=== PATIENT | male | born 1990 | race African-American/Black ===

== ENCOUNTER 2017-02-04 21:14 | Emergency (ER) | payer BC ==
[~2017-02-04] VITALS: Ht 175.3 cm; Wt 81.6 kg
[2017-02-04 21:23] VITALS: BP 111/70
[2017-02-04 22:05] LABS: BASOPHILS % (AUTO) 0.6 % (0.0-2.0); EOSINOPHILS # (AUTO) 0.2 /CMM (0.0-0.7); EOSINOPHILS % (AUTO) 5.2 % (0.0-6.0); HEMATOCRIT 44 % (39-51); HEMOGLOBIN 14.3 g/dL (13.5-17.5); LYMPHOCYTES % (AUTO) 25.6 % (20.0-44.0); MEAN CORPUSCULAR HEMOGLOBIN 30 PG (26.0-33.0); MEAN CORPUSCULAR HGB CONC 32 g/dl (31.0-36.0); MEAN CORPUSCULAR VOLUME 93 fL (80-96); MONOCYTES # (AUTO) 0.3 /CMM (0.1-1.30); MONOCYTES % (AUTO) 7.3 % (2.0-12.0); NEUTROPHILS # (AUTO) 2.3 /CMM (1.8-8.9); NEUTROPHILS % (AUTO) 61.3 % (43.0-81.0); PLATELET COUNT (AUTO) 245 /CMM (150-450); RDW COEFFICIENT OF VARIATION 13.5 (11.5-15.0); RED BLOOD CELL COUNT(AUTO) 4.77 MIL/uL (4.5-6.0); WHITE BLOOD COUNT (AUTO) 3.8 K/uL (4.3-11.0)
[2017-02-04 22:11] LABS: CALCIUM, SERUM 9.1 mg/dL (8.5-10.1); CREATININE 0.9 mg/dL (0.6-1.3); POTASSIUM 3.9 mmol/L (3.5-5.1)
[2017-02-04 22:16] LABS: ALBUMIN 4.3 g/dL (3.4-5.0); BILIRUBIN,DIRECT 0.1 mg/dL (0.0-0.2); BILIRUBIN,TOTAL 0.5 mg/dL (0.2-1.0); TOTAL PROTEIN, SERUM 7.7 g/dL (6.4-8.2)
--- NOTE | 2017-02-04 22:35 | NUR ---
PT RESTING IN BED, PLAYING ON PHONE, BREATHIG NUNLABORED, GABRIELLE NTOED.
== END 2017-02-04 23:27 | disposition home or self-care (01) ==
LOC: ER 21:16
DX: R06.00 Dyspnea, unspecified (principal); R10.13 Epigastric pain; R20.2 Paresthesia of skin; M62.830 Muscle spasm of back; D72.819 Decreased white blood cell count, unspecified
CPT/HCPCS: 36415; 71010-TC; 80048-TC; 80076-TC; 83690-TC; 85025-TC; A4606; J1885; Z7610

== ENCOUNTER 2019-08-14 12:56 | Emergency (ER) | payer BC, OTHER ==
[~2019-08-14] VITALS: Ht 185.4 cm; Wt 77.1 kg
--- NOTE | 2019-08-14 13:25 | NUR ---
PT REC'D TO ER C/O CP AND RT CALF PAIN 3/10 EKG DONE AWAITING EVALUATION BY ER PROVIDER.
[2019-08-14] MEDS ORDERED: KETOROLAC TROMETHAMINE INJ 60 MG/2 ML VIAL IM ONE (13:30)
[2019-08-14] MEDS ORDERED: KETOROLAC TROMETHAMINE 15 MG/ML VIAL ONE (13:33)
--- NOTE | 2019-08-14 13:37 | NUR ---
PT GIVEN TORADOL 15 MG IM RT DELTOID
--- NOTE | 2019-08-14 13:49 | NUR ---
PT SSTATED FEELING BETTER EKG JERAD
--- NOTE | 2019-08-14 13:57 | NUR ---
cardiology on-call paged
[2019-08-14] MEDS ORDERED: ASPIRIN 325 MG TABLET PO ONE (14:00)
[2019-08-14] MEDS ORDERED: ASPIRIN 325 MG TABLET ONE (14:03)
--- NOTE | 2019-08-14 14:14 | NUR ---
PT [id number] ASA 325 MG PO AND IV STARTED 20G IV LABS SENT TO LAB . CHEST XRAY DONE
[2019-08-14 14:24] LABS: EOSINOPHILS % (AUTO) 20.7 % (0.0-6.0); HEMATOCRIT 44 % (39-51); HEMOGLOBIN 14.3 g/dL (13.5-17.5); LYMPHOCYTES # (AUTO) 0.7 /CMM (0.8-4.8); LYMPHOCYTES % (AUTO) 21.2 % (20.0-44.0); MEAN CORPUSCULAR HGB CONC 33 g/dl (31.0-36.0); MEAN CORPUSCULAR VOLUME 95 fL (80-96); MONOCYTES # (AUTO) 0.3 /CMM (0.1-1.30); NEUTROPHILS # (AUTO) 1.7 /CMM (1.8-8.9); NEUTROPHILS % (AUTO) 49.1 % (43.0-81.0); PLATELET COUNT (AUTO) 237 /CMM (150-450); WHITE BLOOD COUNT (AUTO) 3.5 K/uL (4.3-11.0)
[2019-08-14 14:26] LABS: CALCIUM, SERUM 8.6 mg/dL (8.5-10.1); CARBON DIOXIDE 31 mmol/L (21-32); CHLORIDE 105 mmol/L (98-107); CREATININE 0.9 mg/dL (0.6-1.3); GLUCOSE 96 mg/dL (74-106); POTASSIUM 4.5 mmol/L (3.5-5.1); SODIUM SERUM 144 mmol/L (136-145); UREA NITROGEN, BLOOD 7 mg/dL (7-18)
--- NOTE | 2019-08-14 17:28 | NUR ---
pt amb to br voided back to bed . pt blood drawn tropion level
--- NOTE | 2019-08-14 19:12 | NUR ---
PT. VERBALIZED UNDERSTANDING OF AFTERCARE INSTRUCTIONS.IV removed. Catheter intact and site benign. Pressure and 4x4 applied to site. No bleeding noted.Patient discharged to home in stable condition. Written and verbal after care instructions given. Patient verbalizes understanding of instruction.
[2019-08-14 19:13] VITALS: BP 137/78
--- NOTE | 2019-08-14 19:31 | NUR ---
Patient discharged to home in stable condition. Written and verbal after care instructions given. Patient verbalizes understanding of instruction.
== END 2019-08-14 19:32 | disposition home or self-care (01) ==
LOC: ER 12:56
DX: R07.89 Other chest pain (principal); M79.662 Pain in left lower leg; M79.661 Pain in right lower leg
CPT/HCPCS: 36415; 71045; 80048; 84484 ×2; 85025; 85378; 93005 ×2; 93970; 96372; 99285; J1885

== ENCOUNTER 2019-10-02 21:12 | Emergency (ER) | payer OTHER ==
[~2019-10-02] VITALS: Ht 185.4 cm; Wt 77.1 kg
--- NOTE | 2019-10-02 21:15 | NUR ---
TO ER BED 3 AMBULATORY C/O MIDSTERNAL CP/EPIGASTRIC PAIN X1 WEEK WORSE SINCE LAST NIGHT. PT AAOX4 NO ACUTE DISTRESS NOTED, RESP EVEN AND UNLABORED. PLACE PT ON CARDIAC MONTIORING, COTNINUOUS POX. PENDING ER MD PADRON.
--- NOTE | 2019-10-02 21:54 | NUR ---
XRAY AT BEDSIDE
--- NOTE | 2019-10-02 21:54 | NUR ---
LABS COLLECTED AND SENT TO LAB
[2019-10-02] MEDS ORDERED: MAG HYDROX/AL HYDROX/SIMETH 30 ML UDC PO ONE (22:00)
[2019-10-02] MEDS ORDERED: LIDOCAINE VISCOUS 2% UD 15 ML UDC MM ONE (22:00)
[2019-10-02 22:01] LABS: BASOPHILS # (AUTO) 0.1 /CMM (0.0-0.2); BASOPHILS % (AUTO) 1.8 % (0.0-2.0); EOSINOPHILS % (AUTO) 6.2 % (0.0-6.0); HEMATOCRIT 42 % (39-51); HEMOGLOBIN 13.9 g/dL (13.5-17.5); LYMPHOCYTES % (AUTO) 31.3 % (20.0-44.0); MEAN CORPUSCULAR HGB CONC 34 g/dl (31.0-36.0); MEAN CORPUSCULAR VOLUME 94 fL (80-96); MONOCYTES # (AUTO) 0.3 /CMM (0.1-1.30); MONOCYTES % (AUTO) 8.1 % (2.0-12.0); NEUTROPHILS # (AUTO) 1.7 /CMM (1.8-8.9); NEUTROPHILS % (AUTO) 52.6 % (43.0-81.0); PLATELET COUNT (AUTO) 246 /CMM (150-450); RED BLOOD CELL COUNT(AUTO) 4.43 MIL/uL (4.5-6.0); WHITE BLOOD COUNT (AUTO) 3.3 K/uL (4.3-11.0)
[2019-10-02 22:09] LABS: CALCIUM, SERUM 8.9 mg/dL (8.5-10.1); POTASSIUM 3.9 mmol/L (3.5-5.1)
[2019-10-02] MEDS ORDERED: MAG HYDROX/AL HYDROX/SIMETH 30 ML UDC ONE (22:10)
[2019-10-02] MEDS ORDERED: LIDOCAINE VISCOUS 2% UD 15 ML UDC ONE (22:10)
--- NOTE | 2019-10-02 22:12 | NUR ---
Patient is resting comfortably in bed. Easily aroused. VSS.
[2019-10-02 22:14] LABS: ALBUMIN 4.2 g/dL (3.4-5.0); BILIRUBIN,DIRECT 0.1 mg/dL (0.0-0.2); BILIRUBIN,TOTAL 0.4 mg/dL (0.2-1.0); TOTAL PROTEIN, SERUM 7.6 g/dL (6.4-8.2)
--- NOTE | 2019-10-03 02:05 | NUR ---
Patient discharged to home in stable condition. Written and verbal after care instructions given. Patient verbalizes understanding of instruction and RX. Pt ambulated with steady gait. VSS.
--- NOTE | 2019-10-03 02:05 | NUR ---
IV removed. Catheter intact and site benign. Pressure and 4x4 applied to site. No bleeding noted.
[2019-10-03 02:07] VITALS: BP 122/78
== END 2019-10-03 02:07 | disposition home or self-care (01) ==
LOC: ER 21:17
DX: K29.60 Other gastritis without bleeding (principal); R07.89 Other chest pain; R00.2 Palpitations
CPT/HCPCS: 36415; 71045-TC; 80048-TC; 80076-TC; 84484-TC; 85025-TC

== ENCOUNTER 2020-01-24 16:45 | Emergency (ER) | payer OTHER ==
[~2020-01-24] VITALS: Ht 185.4 cm; Wt 78.5 kg
[2020-01-24] MEDS ORDERED: IV NS 0.9% 1,000 ML BAG IV ONE (17:00)
[2020-01-24] MEDS ORDERED: MORPHINE SULFATE INJ 2 MG/ML DISP.SYRIN IV ONE (17:00)
[2020-01-24] MEDS ORDERED: ONDANSETRON HCL/PF 4 MG/2 ML VIAL IVP ONE (17:00)
[2020-01-24] MEDS ORDERED: ONDANSETRON HCL/PF 4 MG/2 ML VIAL ONE (17:03)
[2020-01-24] MEDS ORDERED: MORPHINE SULFATE INJ 4 MG/ML DISP.SYRIN ONE (17:03)
[2020-01-24 17:18] LABS: BASOPHILS % (AUTO) 0.3 % (0.0-2.0); EOSINOPHILS % (AUTO) 8.3 % (0.0-6.0); HEMATOCRIT 44 % (39-51); HEMOGLOBIN 14.5 g/dL (13.5-17.5); LYMPHOCYTES # (AUTO) 0.5 /CMM (0.8-4.8); MEAN CORPUSCULAR HGB CONC 33 g/dl (31.0-36.0); MEAN CORPUSCULAR VOLUME 94 fL (80-96); MONOCYTES # (AUTO) 0.3 /CMM (0.1-1.30); MONOCYTES % (AUTO) 8.7 % (2.0-12.0); NEUTROPHILS # (AUTO) 2.3 /CMM (1.8-8.9); NEUTROPHILS % (AUTO) 68.7 % (43.0-81.0); PLATELET COUNT (AUTO) 237 /CMM (150-450); WHITE BLOOD COUNT (AUTO) 3.4 K/uL (4.3-11.0)
--- NOTE | 2020-01-24 17:19 | NUR ---
BIBS FROM HOME TO ER BED 7. AAOX4. NOT IN RESP DISTRESS. AMBULATORY. CAME IN FOR GEN ABDOMINAL PAIN X 2 WEEKS. RATES PAIN 10/10 SHARP, STABBING AND CONSTANT IN NATURE. PT DENIES NAUSEA AT THE TIME OF ASSESSMENT. PT DID REPORT THAT HE HAS BEEN HAVING ASSOCIATED WATTERY DIARRHEA. WAS A THE BEDSIDE FOR EVAL. ORDERS RECEIVED, NOTED AND CARRIED OUT. IV LINE ESTABLISHED ON RFA 18G. BLOOD DRAWN AND GIVEN TO ROVING OR YARN COLOR CHECKER AT BEDSIDE. MEDICATION ORDERED. PT ON MONITOR.
[2020-01-24 17:28] LABS: CALCIUM, SERUM 9.2 mg/dL (8.5-10.1); POTASSIUM 3.8 mmol/L (3.5-5.1)
[2020-01-24] MEDS ORDERED: IOHEXOL-300 100 ML VIAL IV ONE (17:33)
[2020-01-24] MEDS ORDERED: IV NS 0.9% 250 ML IV ONE (17:33)
[2020-01-24 17:34] LABS: ALBUMIN 4.2 g/dL (3.4-5.0); BILIRUBIN,DIRECT 0.1 mg/dL (0.0-0.2); BILIRUBIN,TOTAL 0.5 mg/dL (0.2-1.0); TOTAL PROTEIN, SERUM 7.9 g/dL (6.4-8.2)
--- NOTE | 2020-01-24 17:37 | NUR ---
PT TO CT ON WHEELCHAIR
[2020-01-24 18:23] LABS: APPEARANCE,URINE Clear (CLEAR); BILIRUBIN,URINE Negative (NEGATIVE); BLOOD, URINE Negative Ery/uL (NEGATIVE); COLOR,URINE Yellow (YELLOW); KETONES,URINE Negative (NEGATIVE); LEUKOCYTE ESTERASE ,URINE Negative (NEGATIVE); NITRITE, URINE Negative (NEGATIVE); PH,URINE 5.5 (5.0-8.0); PROTEIN,URINE Negative (NEGATIVE); UGLUCOSE Negative (NEGATIVE); UROBILINOGEN,URINE 0.2 EU/dL (0.2)
--- NOTE | 2020-01-24 18:48 | NUR ---
COVIDE SWAB DONE AND SENT TO LAB
[2020-01-24 18:55] VITALS: BP 121/71
== END 2020-01-24 18:55 | disposition home or self-care (01) ==
LOC: ER 16:48
DX: K52.9 Noninfective gastroenteritis and colitis, unspecified (principal); Z20.828 Contact with and (suspected) exposure to other viral communicable diseases; K92.1 Melena
CPT/HCPCS: 36415; 74177; 80048; 80076; 81001; 83690; 85025; 85730; 96361; 96374; 96375; 99285; C9803; J2270; J2405; J7030; J7050; Q9967; U0003; 81000-TC

== ENCOUNTER 2020-01-26 17:32 | Emergency (ER) | payer OTHER ==
[~2020-01-26] VITALS: Ht 185.4 cm; Wt 78.5 kg
--- NOTE | 2020-01-26 17:46 | NUR ---
diffuse abdominal pain since last night. seen for colitis 2 days ago. Patient a/ox4, breathing even and unlabored, no sob ntoed, ambulatory with steady gait. Denies nausea and vomiting.
--- NOTE | 2020-01-26 18:03 | NUR ---
URINE SENT TO LAB.
[2020-01-26 18:06] LABS: BASOPHILS % (AUTO) 0.4 % (0.0-2.0); EOSINOPHILS % (AUTO) 8.5 % (0.0-6.0); HEMATOCRIT 45 % (39-51); HEMOGLOBIN 14.7 g/dL (13.5-17.5); LYMPHOCYTES # (AUTO) 0.5 /CMM (0.8-4.8); MEAN CORPUSCULAR HGB CONC 33 g/dl (31.0-36.0); MEAN CORPUSCULAR VOLUME 93 fL (80-96); MONOCYTES # (AUTO) 0.5 /CMM (0.1-1.30); MONOCYTES % (AUTO) 9.1 % (2.0-12.0); NEUTROPHILS # (AUTO) 4.5 /CMM (1.8-8.9); PLATELET COUNT (AUTO) 263 /CMM (150-450); RED BLOOD CELL COUNT(AUTO) 4.84 MIL/uL (4.5-6.0)
[2020-01-26 18:08] LABS: APPEARANCE,URINE Clear (CLEAR); BILIRUBIN,URINE Negative (NEGATIVE); BLOOD, URINE Negative Ery/uL (NEGATIVE); COLOR,URINE Yellow (YELLOW); KETONES,URINE Trace (NEGATIVE); LEUKOCYTE ESTERASE ,URINE Negative (NEGATIVE); NITRITE, URINE Negative (NEGATIVE); PROTEIN,URINE Trace mg/dl (NEGATIVE); UGLUCOSE Negative (NEGATIVE); UROBILINOGEN,URINE 0.2 EU/dL (0.2)
[2020-01-26 18:16] LABS: CALCIUM, SERUM 9.2 mg/dL (8.5-10.1)
[2020-01-26 18:22] LABS: ALBUMIN 4.4 g/dL (3.4-5.0); BILIRUBIN,DIRECT 0.1 mg/dL (0.0-0.2); BILIRUBIN,TOTAL 0.5 mg/dL (0.2-1.0); TOTAL PROTEIN, SERUM 7.7 g/dL (6.4-8.2)
[2020-01-26 18:24] LABS: BACTERIA,URINE Rare /HPF (None Seen); MUCUS,URINE Moderate /LPF (None Seen); RBC,URINE 0-2 /HPF (0-2); SQUAMOUS EPITHELIAL CELL,UR Few /HPF (None Seen); URINE AMORPHOUS URATE Few /HPF (None Seen)
[2020-01-26] MEDS ORDERED: ONDANSETRON HCL/PF 4 MG/2 ML VIAL ONE (18:35)
[2020-01-26] MEDS ORDERED: KETOROLAC TROMETHAMINE 15 MG/ML VIAL ONE (18:35)
[2020-01-26] MEDS ORDERED: PANTOPRAZOLE 40 MG VIAL ONE (18:35)
[2020-01-26] MEDS: PANTOPRAZOLE 40 MG VIAL IV ONE (18:45)
[2020-01-26] MEDS: KETOROLAC TROMETHAMINE INJ 30 MG/ML VIAL IV ONE (18:46)
[2020-01-26] MEDS: ONDANSETRON HCL/PF - ER 4 MG/2 ML VIAL IV ONE (18:46)
--- NOTE | 2020-01-26 18:46 | NUR ---
IV LINE ESTABLISHED. US TECH AT BEDSIDE.
--- NOTE | 2020-01-26 19:18 | NUR ---
TOOK OVER PT CARE. PT STATED HE FEELS BETTER. VSS. NO ACUTE DISTRESS NOTED.
--- NOTE | 2020-01-26 19:48 | NUR ---
Patient discharged to home in stable condition. Written and verbal after care instructions given. Patient verbalizes understanding of instruction and RX. Pt ambulated with steady gait. vss. Denies pain.
--- NOTE | 2020-01-26 19:48 | NUR ---
IV removed. Catheter intact and site benign. Pressure and 4x4 applied to site. No bleeding noted.
[2020-01-26 19:49] VITALS: BP 112/73
== END 2020-01-26 19:50 | disposition home or self-care (01) ==
LOC: ER 17:32
DX: R10.13 Epigastric pain (principal); R19.7 Diarrhea, unspecified
CPT/HCPCS: 36415; 76705; 80048; 80076; 81001; 83690; 85025; 96374; 96375; 99284; C9113; J1885; J2405 ×2; 81000-TC

== ENCOUNTER 2020-01-29 00:13 | Emergency (ER) | payer OTHER ==
[~2020-01-29] VITALS: Ht 185.4 cm; Wt 78.5 kg
--- NOTE | 2020-01-29 00:30 | NUR ---
PT BIBSELF C/O MIDEPIGASTRIC ABDOMINAL PAIN X3 DAYS. PT HAS HAD MULTIPLE VISITS TO [facility] ER, DX WITH COLITIS 01/24/20. PT STATES HE ATTEMPTED TO MAKE APPT WITH GASTROLOGIST, APPT IN 4 DAYS BUT PT STILL C/O NAUSEA AND ABDOMINAL PAIN. PT AAOX4. APPEARS UNCOMFORTABLE. VITAL SIGNS STABLE. RESPIRATIONS EVEN AND UNLABORED. AMBULATORY WITH STEADY GAIT. NO ACUTE DISTRESS NOTED AT THIS TIME. PLACED IN GOWN AND ON MONITOR, WILL CONTINUE TO MONITOR
--- NOTE | 2020-01-29 00:44 | NUR ---
MD AT BEDSIDE FOR EVALUATION
[2020-01-29] MEDS ORDERED: LIDOCAINE VISCOUS 2% UD 15 ML UDC ONE (00:57)
[2020-01-29] MEDS ORDERED: KETOROLAC TROMETHAMINE INJ 60 MG/2 ML VIAL IM ONE ×2 (00:57→01:00)
[2020-01-29] MEDS ORDERED: MAG HYDROX/AL HYDROX/SIMETH 30 ML UDC ONE (00:58)
[2020-01-29] MEDS ORDERED: ONDANSETRON 4 MG TAB.RAPDIS ONE (00:58)
[2020-01-29] MEDS ORDERED: ONDANSETRON 4 MG TAB.RAPDIS SL ONE (01:00)
[2020-01-29] MEDS ORDERED: MAG HYDROX/AL HYDROX/SIMETH 30 ML UDC PO ONE (01:00)
[2020-01-29] MEDS ORDERED: LIDOCAINE VISCOUS 2% UD 15 ML UDC MM ONE (01:00)
[2020-01-29 01:59] VITALS: BP 149/78
--- NOTE | 2020-01-29 01:59 | NUR ---
Patient discharged to home in stable condition. Written and verbal after care instructions given. Patient verbalizes understanding of instruction.Pt ambulatory with a steady gait
== END 2020-01-29 02:07 | disposition home or self-care (01) ==
LOC: ER 00:13
DX: R10.33 Periumbilical pain (principal); R11.0 Nausea
CPT/HCPCS: 96372; 99284; J1885; Q0162

== ENCOUNTER 2020-06-06 17:53 | Emergency (ER) | payer OTHER ==
[~2020-06-06] VITALS: Ht 182.9 cm; Wt 78.5 kg
[2020-06-06 18:02] VITALS: BP 140/72
[2020-06-06] MEDS ORDERED: HYDR-3972 PO (18:16)
== END 2020-06-06 18:35 | disposition home or self-care (01) ==
LOC: ER 17:55
DX: G97.1 Other reaction to spinal and lumbar puncture (principal); R51.9 Headache, unspecified; Z79.899 Other long term (current) drug therapy

== ENCOUNTER 2020-06-19 01:14 | Emergency (ER) | payer OTHER ==
[~2020-06-19] VITALS: Ht 185.4 cm; Wt 78.5 kg
[~2020-06-19 01:14] MED LIST: HYDR-3972 PO
--- NOTE | 2020-06-19 01:20 | NUR ---
BIBSELF C/O R SHOULDER PAIN [id number], PAIN RADIATING TO CHEST DEVELOPMENT CHEMIST, PT AAOX4, DENIES SOB, NOT IN ACUTE DISTRESS, PLACED ON MONITOR, VSS, PENDING ER PROVIDER NEREIDA
[2020-06-19 01:49] LABS: BASOPHILS # (AUTO) 0.1 /CMM (0.0-0.2); BASOPHILS % (AUTO) 1.7 % (0.0-2.0); EOSINOPHILS % (AUTO) 7.8 % (0.0-6.0); HEMATOCRIT 40 % (39-51); HEMOGLOBIN 13.3 g/dL (13.5-17.5); LYMPHOCYTES # (AUTO) 1.1 /CMM (0.8-4.8); LYMPHOCYTES % (AUTO) 30.3 % (20.0-44.0); MEAN CORPUSCULAR HGB CONC 33 g/dl (31.0-36.0); MEAN CORPUSCULAR VOLUME 92 fL (80-96); MONOCYTES # (AUTO) 0.3 /CMM (0.1-1.30); MONOCYTES % (AUTO) 8.4 % (2.0-12.0); NEUTROPHILS # (AUTO) 1.9 /CMM (1.8-8.9); NEUTROPHILS % (AUTO) 51.8 % (43.0-81.0); PLATELET COUNT (AUTO) 271 /CMM (150-450); RED BLOOD CELL COUNT(AUTO) 4.38 MIL/uL (4.5-6.0); WHITE BLOOD COUNT (AUTO) 3.7 K/uL (4.3-11.0)
[2020-06-19 02:22] LABS: CALCIUM, SERUM 9.1 mg/dL (8.5-10.1); CARBON DIOXIDE 35 mmol/L (21-32); CHLORIDE 104 mmol/L (98-107); CREATININE 0.9 mg/dL (0.6-1.3); GLUCOSE 91 mg/dL (74-106); POTASSIUM 4.9 mmol/L (3.5-5.1); SODIUM SERUM 142 mmol/L (136-145); UREA NITROGEN, BLOOD 7 mg/dL (7-18)
--- NOTE | 2020-06-19 03:09 | NUR ---
Patient discharged to home in stable condition. Written and verbal after care instructions given. Patient verbalizes understanding of instruction.
[2020-06-19 03:13] VITALS: BP 125/75
== END 2020-06-19 03:13 | disposition home or self-care (01) ==
LOC: ER 01:15
DX: R07.89 Other chest pain (principal); Z79.899 Other long term (current) drug therapy
CPT/HCPCS: 36415; 71045-TC; 80048-TC; 84484-TC; 85025-TC

== ENCOUNTER 2020-07-31 18:04 | Emergency (ER) | payer OTHER ==
[~2020-07-31] VITALS: Ht 185.4 cm; Wt 76.2 kg
--- NOTE | 2020-07-31 18:35 | NUR ---
THE PATIENT BIBSELF FOR C/O FREQUENT SCANTY URINATION,DARK URINE X 4 DAYS. ALERT AND ORIENTED X4. DENIES SOB. IN ROOM AIR AIR AND DENIES SOB. RESPIRATION REGULAR AND UNLABORED. DENIES PAIN. THE PATIENT IS PROVIDED WITH A BLANKET. WILL CONTINUE TO MONITOR.
--- NOTE | 2020-07-31 18:45 | NUR ---
URINE COLLECTED AND SENT IT TO THE LAB.
[2020-07-31] MEDS ORDERED: IV NS 0.9% 1,000 ML BAG IV ONE (19:00)
[2020-07-31 19:08] LABS: BILIRUBIN,URINE NEGATIVE (NEGATIVE); COLOR,URINE YELLOW (YELLOW); LEUKOCYTE ESTERASE ,URINE NEGATIVE (NEGATIVE); NITRITE, URINE NEGATIVE (NEGATIVE); PH,URINE 6.5 (5.0-8.0); PROTEIN,URINE NEGATIVE (NEGATIVE); UGLUCOSE NEGATIVE (NEGATIVE); UROBILINOGEN,URINE 0.2 EU/dL (0.2)
[2020-07-31 19:27] LABS: BASOPHILS # (AUTO) 0.1 /CMM (0.0-0.2); EOSINOPHILS % (AUTO) 4.3 % (0.0-6.0); HEMATOCRIT 40 % (39-51); HEMOGLOBIN 13.3 g/dL (13.5-17.5); LYMPHOCYTES # (AUTO) 0.8 /CMM (0.8-4.8); LYMPHOCYTES % (AUTO) 27.4 % (20.0-44.0); MEAN CORPUSCULAR HGB CONC 33 g/dl (31.0-36.0); MEAN CORPUSCULAR VOLUME 92 fL (80-96); MONOCYTES # (AUTO) 0.3 /CMM (0.1-1.30); NEUTROPHILS # (AUTO) 1.5 /CMM (1.8-8.9); NEUTROPHILS % (AUTO) 55.3 % (43.0-81.0); PLATELET COUNT (AUTO) 273 /CMM (150-450); RED BLOOD CELL COUNT(AUTO) 4.31 MIL/uL (4.5-6.0); WHITE BLOOD COUNT (AUTO) 2.8 K/uL (4.3-11.0)
[2020-07-31 19:45] LABS: CALCIUM, SERUM 9.3 mg/dL (8.5-10.1); CREATININE 0.8 mg/dL (0.6-1.3); POTASSIUM 4.2 mmol/L (3.5-5.1)
[2020-07-31 19:50] LABS: ALBUMIN 4.2 g/dL (3.4-5.0); BILIRUBIN,DIRECT 0.1 mg/dL (0.0-0.2); BILIRUBIN,TOTAL 0.4 mg/dL (0.2-1.0); TOTAL PROTEIN, SERUM 7.3 g/dL (6.4-8.2)
--- NOTE | 2020-07-31 21:01 | NUR ---
Patient alert and oriented x4. Denies pain. In room air and denies SOB. Respiration regular and unlabored. Patient discharged to home in stable condition. Written and verbal after care instructions given. Patient verbalizes understanding of instruction. The patient left ER in stable condition.
[2020-07-31 21:02] VITALS: BP 135/88
== END 2020-07-31 21:03 | disposition home or self-care (01) ==
LOC: ER 18:10
DX: R82.90 Unspecified abnormal findings in urine (principal); R74.01 Elevation of levels of liver transaminase levels; D72.819 Decreased white blood cell count, unspecified; G35 Multiple sclerosis; Z79.899 Other long term (current) drug therapy
CPT/HCPCS: 36415; 76770; 80048; 80076; 81003; 83690; 85025; 96360; 99284; J7030

== ENCOUNTER 2020-09-02 01:47 | Emergency (ER) | payer OTHER ==
[~2020-09-02] VITALS: Ht 185.4 cm; Wt 76.2 kg
--- NOTE | 2020-09-02 01:52 | NUR ---
pt bibself c/o headache and neck pain since 27. Pt aaox4 breathing evenly and unlabored. Pt states " " I was watching a movie when i jumped back and my neck popped". MD at bedside for eval. Pt skin warm, dry, and intact. Pt attached to monitor and pox. Pt given blanket and call light within reach
--- NOTE | 2020-09-02 02:20 | NUR ---
taken to ct
[2020-09-02] MEDS ORDERED: KETOROLAC TROMETHAMINE INJ 30 MG/ML VIAL ONE (02:21)
[2020-09-02] MEDS ORDERED: KETOROLAC TROMETHAMINE INJ 30 MG/ML VIAL IM ONE (02:30)
--- NOTE | 2020-09-02 03:55 | NUR ---
Patient discharged to home in stable condition. Written and verbal after care instructions given. Patient verbalizes understanding of instruction. Pt ambulatory with a steady gait
[2020-09-02 03:59] VITALS: BP 134/88
== END 2020-09-02 03:55 | disposition home or self-care (01) ==
LOC: ER 01:50
DX: M54.2 Cervicalgia (principal); R51.9 Headache, unspecified; G35 Multiple sclerosis; X58.XXXA Exposure to other specified factors, initial encounter; Y93.89 Activity, other specified; Y92.89 Other specified places as the place of occurrence of the external cause; Y99.8 Other external cause status
CPT/HCPCS: 70450; 72125; 96372; 99285; J1885

== ENCOUNTER 2020-10-10 23:57 | Emergency (ER) | payer OTHER ==
[~2020-10-10] VITALS: Ht 185.4 cm; Wt 77.1 kg
[2020-10-11] MEDS ORDERED: KETOROLAC TROMETHAMINE INJ 30 MG/ML VIAL ONE (00:50)
[2020-10-11] MEDS ORDERED: IV NS 0.9% 500 ML BAG IV ONE (01:00)
[2020-10-11] MEDS ORDERED: KETOROLAC TROMETHAMINE INJ 30 MG/ML VIAL IV ONE (01:00)
--- NOTE | 2020-10-11 01:00 | NUR ---
BLOOD IS COLLECTED AND SENT TO THE LAB
--- NOTE | 2020-10-11 01:01 | NUR ---
PATIENT CAME TO ER BED 10 C/O MEDIAL ABDOMINAL PAIN RADIATING TO THE BACK SINCE LAST NIGHT. PATIENT STATES THAT HE HAD 3 BOUTS OF DIARRHEA AT HOME. PATIENT IS ALERT AND ORIENTED x4. PATIENT DENIES SHORTNESS OF BREATH. PATIENT IS BREATHING EVENLY AND UNLABORED ON ROOM AIR. CONNECTED TO THE ROLL HANDLER.
[2020-10-11 01:06] LABS: BASOPHILS % (AUTO) 1.6 % (0.0-2.0); EOSINOPHILS % (AUTO) 11.3 % (0.0-6.0); HEMATOCRIT 42 % (39-51); HEMOGLOBIN 13.7 g/dL (13.5-17.5); LYMPHOCYTES # (AUTO) 0.6 /CMM (0.8-4.8); LYMPHOCYTES % (AUTO) 25.8 % (20.0-44.0); MEAN CORPUSCULAR HGB CONC 33 g/dl (31.0-36.0); MEAN CORPUSCULAR VOLUME 94 fL (80-96); MONOCYTES # (AUTO) 0.4 /CMM (0.1-1.30); MONOCYTES % (AUTO) 17.7 % (2.0-12.0); NEUTROPHILS % (AUTO) 43.6 % (43.0-81.0); PLATELET COUNT (AUTO) 253 /CMM (150-450); RED BLOOD CELL COUNT(AUTO) 4.47 MIL/uL (4.5-6.0); WHITE BLOOD COUNT (AUTO) 2.2 K/uL (4.3-11.0)
[2020-10-11 01:14] LABS: CALCIUM, SERUM 9.2 mg/dL (8.5-10.1); CREATININE 0.8 mg/dL (0.6-1.3); POTASSIUM 4.4 mmol/L (3.5-5.1)
[2020-10-11 01:21] LABS: ALBUMIN 4.3 g/dL (3.4-5.0); BILIRUBIN,DIRECT 0.1 mg/dL (0.0-0.2); BILIRUBIN,TOTAL 0.5 mg/dL (0.2-1.0); TOTAL PROTEIN, SERUM 7.6 g/dL (6.4-8.2)
[2020-10-11 01:30] LABS: BILIRUBIN,URINE Negative (NEGATIVE); COLOR,URINE YELLOW (YELLOW); LEUKOCYTE ESTERASE ,URINE Negative (NEGATIVE); NITRITE, URINE Negative (NEGATIVE); PROTEIN,URINE Negative (NEGATIVE); UGLUCOSE Negative (NEGATIVE); UROBILINOGEN,URINE 0.2 EU/dL (0.2)
[2020-10-11 01:42] LABS: LYMPHOCYTES % (MANUAL) 32 % (16-48); MONOCYTES % (MANUAL) 17 % (0-11.0)
[2020-10-11 01:43] LABS: EOSINOPHILS % (MANUAL) 12 % (0-4); NEUTROPHILS % (MANUAL) 39 (42-76)
[2020-10-11 03:24] VITALS: BP 123/77
--- NOTE | 2020-10-11 03:24 | NUR ---
Patient discharged to home in stable condition. Written and verbal after care instructions given. Patient verbalizes understanding of instruction.
--- NOTE | 2020-10-11 03:24 | NUR ---
IV removed. Catheter intact and site benign. Pressure and 4x4 applied to site. No bleeding noted.
== END 2020-10-11 03:24 | disposition home or self-care (01) ==
LOC: ER 10-11
DX: R10.9 Unspecified abdominal pain (principal); R19.7 Diarrhea, unspecified; Z79.899 Other long term (current) drug therapy
CPT/HCPCS: 36415; 74176; 80048; 80076; 81003; 83690; 85007; 85025; 96361; 96374; 99284; J1885; J7040

== ENCOUNTER 2021-05-15 23:24 | Emergency (ER) | payer OTHER ==
[~2021-05-15] VITALS: Ht 185.4 cm; Wt 77.1 kg
[2021-05-16 00:32] VITALS: BP 142/84
== END 2021-05-16 02:14 | disposition home or self-care (01) ==
LOC: ER 23:32
DX: L70.9 Acne, unspecified (principal); Z20.822 Contact with and (suspected) exposure to COVID-19; G35 Multiple sclerosis
CPT/HCPCS: 87426; 99283; C9803

== ENCOUNTER 2021-06-18 11:03 | Emergency (ER) | payer OTHER ==
[~2021-06-18] VITALS: Ht 185.4 cm; Wt 68.5 kg
--- NOTE | 2021-06-18 11:10 | NUR ---
BIBS C/O PAIN ON THE BACK OF HIS HEAD, STATED IT FEEL HEAVY, ALSO STATED HE CANT FOCUS AFTER RECIEVING THE BOOSTER SHOT AFTER 05/10/21, AND HAD SHARP BACK PAIN THAT COMES AND GOES, CURRENTLY DOES NOT HAVE BACK PAIN. VITALS ARE WITHIN NOTMSL LIMITS, ATTACHED TO MONITOR. DR HERNANDEZ AT BEDSIDE FOR EVAL.
--- NOTE | 2021-06-18 11:14 | NUR ---
IV ESTABLISHED R AC 20G, LABS DRAWN AND COLLECTED AND DRAWN AT BEDSIDE
--- NOTE | 2021-06-18 11:26 | NUR ---
URINE SAMPLE COLLECTED AND SENT.
--- NOTE | 2021-06-18 11:48 | NUR ---
PT TAKEN TO CT
[2021-06-18 11:51] LABS: BASOPHILS % (AUTO) 0.4 % (0.0-2.0); EOSINOPHILS % (AUTO) 3.1 % (0.0-6.0); HEMATOCRIT 41 % (39-51); HEMOGLOBIN 13.9 g/dL (13.5-17.5); LYMPHOCYTES # (AUTO) 0.2 K/uL (0.8-4.8); MEAN CORPUSCULAR HGB CONC 34 g/dl (31.0-36.0); MEAN CORPUSCULAR VOLUME 92 fL (80-96); MONOCYTES # (AUTO) 0.2 K/uL (0.1-1.30); MONOCYTES % (AUTO) 10.7 % (2.0-12.0); NEUTROPHILS # (AUTO) 1.5 K/uL (1.8-8.9); NEUTROPHILS % (AUTO) 76.8 % (43.0-81.0); PLATELET COUNT (AUTO) 250 K/uL (150-450); RED BLOOD CELL COUNT(AUTO) 4.51 MIL/uL (4.5-6.0)
[2021-06-18 12:00] LABS: WHITE BLOOD COUNT (AUTO) 1.9 K/uL (4.3-11.0)
[2021-06-18 12:09] LABS: BILIRUBIN,URINE NEGATIVE (NEGATIVE); COLOR,URINE YELLOW (YELLOW); LEUKOCYTE ESTERASE ,URINE NEGATIVE (NEGATIVE); NITRITE, URINE NEGATIVE (NEGATIVE); PROTEIN,URINE NEGATIVE (NEGATIVE); UGLUCOSE NEGATIVE (NEGATIVE); UROBILINOGEN,URINE 0.2 EU/dL (0.2)
[2021-06-18 12:27] LABS: ALBUMIN 4.5 g/dL (3.4-5.0); BILIRUBIN,DIRECT 0.2 mg/dL (0.0-0.2); BILIRUBIN,TOTAL 0.8 mg/dL (0.2-1.0); CALCIUM, SERUM 9.7 mg/dL (8.5-10.1); CREATININE 0.8 mg/dL (0.6-1.3); POTASSIUM 4.4 mmol/L (3.5-5.1); TOTAL PROTEIN, SERUM 7.7 g/dL (6.4-8.2)
[2021-06-18 12:49] LABS: RBC,URINE 0-2 /HPF (0-2)
[2021-06-18 12:51] LABS: BACTERIA,URINE Rare /HPF (None Seen); MUCUS,URINE Moderate /LPF (None Seen); SPERM,URINE Present /HPF (None Seen); SQUAMOUS EPITHELIAL CELL,UR None Seen /HPF (None Seen)
[2021-06-18 13:27] VITALS: BP 112/75
--- NOTE | 2021-06-18 13:27 | NUR ---
IV removed. Catheter intact and site benign. Pressure and 4x4 applied to site. No bleeding noted.Patient discharged to home in stable condition. Written and verbal after care instructions given. Patient verbalizes understanding of instruction.
[2021-06-18 14:51] LABS: EOSINOPHILS % (MANUAL) 3 % (0-4); LYMPHOCYTES % (MANUAL) 8 % (16-48); MONOCYTES % (MANUAL) 13 % (0-11.0); NEUTROPHILS % (MANUAL) 78 (42-76)
== END 2021-06-18 13:27 | disposition home or self-care (01) ==
LOC: ER 11:06
DX: D72.819 Decreased white blood cell count, unspecified (principal); G35 Multiple sclerosis
CPT/HCPCS: 36415; 70450-TC; 71045-TC; 80048-TC; 80076-TC; 81001; 85025-TC

== ENCOUNTER 2021-07-18 14:47 | Emergency (ER) | payer OTHER ==
[~2021-07-18] VITALS: Ht 185.4 cm; Wt 69.4 kg
[2021-07-18] MEDS ORDERED: LIDOCAINE VISCOUS 2% UD 15 ML UDC ONE (15:15)
[2021-07-18] MEDS ORDERED: MAG HYDROX/AL HYDROX/SIMETH 30 ML UDC ONE (15:15)
[2021-07-18] MEDS: LIDOCAINE VISCOUS 2% UD 15 ML UDC MM ONE (15:16)
[2021-07-18] MEDS: MAG HYDROX/AL HYDROX/SIMETH 30 ML UDC PO ONE (15:18)
[2021-07-18 15:59] LABS: BASOPHILS % (AUTO) 0.5 % (0.0-2.0); EOSINOPHILS % (AUTO) 3.9 % (0.0-6.0); HEMATOCRIT 40 % (39-51); HEMOGLOBIN 13.5 g/dL (13.5-17.5); LYMPHOCYTES # (AUTO) 0.3 K/uL (0.8-4.8); LYMPHOCYTES % (AUTO) 10.9 % (20.0-44.0); MEAN CORPUSCULAR HGB CONC 33 g/dl (31.0-36.0); MEAN CORPUSCULAR VOLUME 91 fL (80-96); MONOCYTES # (AUTO) 0.3 K/uL (0.1-1.30); MONOCYTES % (AUTO) 10.8 % (2.0-12.0); NEUTROPHILS # (AUTO) 1.7 K/uL (1.8-8.9); NEUTROPHILS % (AUTO) 73.9 % (43.0-81.0); PLATELET COUNT (AUTO) 227 K/uL (150-450); RED BLOOD CELL COUNT(AUTO) 4.42 MIL/uL (4.5-6.0); WHITE BLOOD COUNT (AUTO) 2.4 K/uL (4.3-11.0)
[2021-07-18 17:24] VITALS: BP 117/65
== END 2021-07-18 17:24 | disposition home or self-care (01) ==
LOC: ER 14:48
DX: D72.819 Decreased white blood cell count, unspecified (principal); G35 Multiple sclerosis
CPT/HCPCS: 36415; 85025-TC

== ENCOUNTER 2021-07-28 21:43 | Emergency (ER) | payer OTHER ==
[~2021-07-28] VITALS: Ht 185.4 cm; Wt 71.7 kg
--- NOTE | 2021-07-28 22:10 | NUR ---
BIBS C/O DIFFUSED ABDOMINAL PAIN X1DAY -N/V/D "HAD SOLU MEDROL INFUSION 2 DAYS AGO, MIGHT BE HAVING A REACTION". PATIENT ALERT AND ORIENTED X3. AMBULATORY WITH NON LABORED BREATHING IN BED 01 ON MONITOR.
--- NOTE | 2021-07-28 22:11 | NUR ---
URINE COLLECTED AND SENT TO LAB
[2021-07-28] MEDS ORDERED: ONDANSETRON 4 MG TAB.RAPDIS PO ONE (22:30)
[2021-07-28] MEDS ORDERED: MAG HYDROX/AL HYDROX/SIMETH 30 ML UDC PO ONE (22:30)
[2021-07-28] MEDS ORDERED: FAMOTIDINE (20 MG) 20 MG TABLET PO ONE (22:30)
[2021-07-28] MEDS ORDERED: FAMOTIDINE (20 MG) 20 MG TABLET ONE (22:37)
[2021-07-28] MEDS ORDERED: ONDANSETRON 4 MG TAB.RAPDIS ONE (22:37)
[2021-07-28] MEDS ORDERED: MAG HYDROX/AL HYDROX/SIMETH 30 ML UDC ONE ×2 (22:37→22:41)
[2021-07-28 23:11] LABS: BASOPHILS % (AUTO) 0.6 % (0.0-2.0); EOSINOPHILS % (AUTO) 2.6 % (0.0-6.0); HEMATOCRIT 37 % (39-51); HEMOGLOBIN 12.5 g/dL (13.5-17.5); LYMPHOCYTES # (AUTO) 0.5 K/uL (0.8-4.8); LYMPHOCYTES % (AUTO) 15.8 % (20.0-44.0); MEAN CORPUSCULAR HGB CONC 34 g/dl (31.0-36.0); MEAN CORPUSCULAR VOLUME 92 fL (80-96); MONOCYTES # (AUTO) 0.3 K/uL (0.1-1.30); MONOCYTES % (AUTO) 10.1 % (2.0-12.0); NEUTROPHILS # (AUTO) 2.2 K/uL (1.8-8.9); NEUTROPHILS % (AUTO) 70.9 % (43.0-81.0); PLATELET COUNT (AUTO) 235 K/uL (150-450); RED BLOOD CELL COUNT(AUTO) 4.08 MIL/uL (4.5-6.0)
[2021-07-28 23:34] LABS: ALBUMIN 3.8 g/dL (3.4-5.0); BILIRUBIN,DIRECT 0.1 mg/dL (0.0-0.2); BILIRUBIN,TOTAL 0.3 mg/dL (0.2-1.0); CALCIUM, SERUM 8.6 mg/dL (8.5-10.1); CREATININE 0.9 mg/dL (0.6-1.3); POTASSIUM 4.5 mmol/L (3.5-5.1); TOTAL PROTEIN, SERUM 6.5 g/dL (6.4-8.2)
[2021-07-28 23:35] LABS: BILIRUBIN,URINE NEGATIVE (NEGATIVE); COLOR,URINE YELLOW (YELLOW); LEUKOCYTE ESTERASE ,URINE NEGATIVE (NEGATIVE); NITRITE, URINE NEGATIVE (NEGATIVE); PROTEIN,URINE NEGATIVE (NEGATIVE); UGLUCOSE NEGATIVE (NEGATIVE); UROBILINOGEN,URINE 0.2 EU/dL (0.2)
--- NOTE | 2021-07-29 01:30 | NUR ---
Patient discharged to home in stable condition. Written and verbal after care instructions given. Patient verbalizes understanding of instruction.
[2021-07-29 01:58] VITALS: BP 114/72
== END 2021-07-29 01:35 | disposition home or self-care (01) ==
LOC: ER 21:56
DX: R10.84 Generalized abdominal pain (principal); D72.818 Other decreased white blood cell count; G35 Multiple sclerosis; Z79.891 Long term (current) use of opiate analgesic
CPT/HCPCS: 36415; 80048; 80076; 81003; 83690; 83735; 85025; 99284; Q0162

== ENCOUNTER 2021-08-10 13:28 | Emergency (ER) | payer OTHER ==
[~2021-08-10] VITALS: Ht 185.4 cm; Wt 70.3 kg
--- NOTE | 2021-08-10 13:41 | NUR ---
TO ER BED 16, BIB SELF C/O UPPER AND LOWER ABDOMINAL PAIN STARTED YESTERDAY, AAOX3, BREATHING EVEN AND NON LABORED, AWAITING MD PADRON
--- NOTE | 2021-08-10 14:03 | NUR ---
AT BEDSIDE FOR EVAL.
[2021-08-10 15:24] LABS: BASOPHILS % (AUTO) 1.2 % (0.0-2.0); EOSINOPHILS % (AUTO) 2.8 % (0.0-6.0); HEMATOCRIT 42 % (39-51); LYMPHOCYTES # (AUTO) 0.3 K/uL (0.8-4.8); LYMPHOCYTES % (AUTO) 11.7 % (20.0-44.0); MEAN CORPUSCULAR HGB CONC 33 g/dl (31.0-36.0); MEAN CORPUSCULAR VOLUME 92 fL (80-96); MONOCYTES # (AUTO) 0.2 K/uL (0.1-1.30); MONOCYTES % (AUTO) 8.1 % (2.0-12.0); NEUTROPHILS # (AUTO) 2.1 K/uL (1.8-8.9); NEUTROPHILS % (AUTO) 76.2 % (43.0-81.0); PLATELET COUNT (AUTO) 249 K/uL (150-450); WHITE BLOOD COUNT (AUTO) 2.7 K/uL (4.3-11.0)
[2021-08-10 15:34] LABS: CALCIUM, SERUM 9.6 mg/dL (8.5-10.1); CREATININE 0.9 mg/dL (0.6-1.3); POTASSIUM 4.3 mmol/L (3.5-5.1)
[2021-08-10 15:40] LABS: ALBUMIN 4.1 g/dL (3.4-5.0); BILIRUBIN,DIRECT 0.2 mg/dL (0.0-0.2); BILIRUBIN,TOTAL 0.7 mg/dL (0.2-1.0); TOTAL PROTEIN, SERUM 7.2 g/dL (6.4-8.2)
[2021-08-10] MEDS ORDERED: DOCU-141 PO (17:34)
--- NOTE | 2021-08-10 18:00 | NUR ---
Patient discharged to home in stable condition. Written and verbal after care instructions given. Patient verbalizes understanding of instruction.
[2021-08-10 18:02] VITALS: BP 112/68
== END 2021-08-10 18:02 | disposition home or self-care (01) ==
LOC: ER 13:38
DX: G89.29 Other chronic pain (principal); K62.5 Hemorrhage of anus and rectum; K64.8 Other hemorrhoids; R10.9 Unspecified abdominal pain; D72.819 Decreased white blood cell count, unspecified; Z86.69 Personal history of other diseases of the nervous system and sense organs; Z79.891 Long term (current) use of opiate analgesic
CPT/HCPCS: 36415; 80048-TC; 80076-TC; 83690-TC; 85025-TC

== ENCOUNTER 2021-10-20 00:31 | Emergency (ER) | payer OTHER ==
[~2021-10-20] VITALS: Ht 185.4 cm; Wt 72.6 kg
[~2021-10-20 00:31] MED LIST changes: +DOCU-141 PO
--- NOTE | 2021-10-20 02:19 | NUR ---
DR. GUS HAMPTON AT PT'S BEDSIDE
[2021-10-20] MEDS ORDERED: ONDANSETRON HCL/PF 4 MG/2 ML VIAL ONE (02:28)
[2021-10-20] MEDS ORDERED: MORPHINE SULFATE INJ 4 MG/ML DISP.SYRIN ONE (02:28)
[2021-10-20] MEDS ORDERED: MORPHINE SULFATE INJ 2 MG/ML DISP.SYRIN IV ONE (02:30)
[2021-10-20] MEDS ORDERED: IV NS 0.9% 1,000 ML BAG IV ONE (02:30)
[2021-10-20] MEDS ORDERED: ONDANSETRON HCL/PF 4 MG/2 ML VIAL IVP ONE (02:30)
--- NOTE | 2021-10-20 02:35 | NUR ---
RAC #18G S/L BLOOD COLLECTED AND SENT TO LAB
--- NOTE | 2021-10-20 02:51 | NUR ---
URINE AND COVID ANTIGEN SWAB COLLECTED AND SENT TO LAB
[2021-10-20 02:56] LABS: BASOPHILS % (AUTO) 0.3 % (0.0-2.0); EOSINOPHILS % (AUTO) 21.6 % (0.0-6.0); HEMATOCRIT 39 % (39-51); HEMOGLOBIN 12.9 g/dL (13.5-17.5); LYMPHOCYTES # (AUTO) 0.4 K/uL (0.8-4.8); LYMPHOCYTES % (AUTO) 8.2 % (20.0-44.0); MEAN CORPUSCULAR HGB CONC 33 g/dl (31.0-36.0); MEAN CORPUSCULAR VOLUME 92 fL (80-96); MONOCYTES # (AUTO) 0.4 K/uL (0.1-1.30); NEUTROPHILS % (AUTO) 60.9 % (43.0-81.0); PLATELET COUNT (AUTO) 215 K/uL (150-450); RED BLOOD CELL COUNT(AUTO) 4.24 MIL/uL (4.5-6.0); WHITE BLOOD COUNT (AUTO) 4.9 K/uL (4.3-11.0)
[2021-10-20 03:09] LABS: BILIRUBIN,URINE NEGATIVE (NEGATIVE); COLOR,URINE YELLOW (YELLOW); LEUKOCYTE ESTERASE ,URINE NEGATIVE (NEGATIVE); NITRITE, URINE NEGATIVE (NEGATIVE); PROTEIN,URINE NEGATIVE (NEGATIVE); UGLUCOSE NEGATIVE (NEGATIVE)
[2021-10-20 03:17] LABS: BACTERIA,URINE None seen /HPF (None Seen); RBC,URINE 0-2 /HPF (0-2); SQUAMOUS EPITHELIAL CELL,UR Rare /HPF (None Seen); WBC,URINE 0-2 /HPF (0-3)
[2021-10-20 03:18] LABS: MUCUS,URINE Few /LPF (None Seen)
[2021-10-20 03:25] LABS: CALCIUM, SERUM 8.7 mg/dL (8.5-10.1); CREATININE 0.9 mg/dL (0.6-1.3); POTASSIUM 4.2 mmol/L (3.5-5.1)
[2021-10-20 03:31] LABS: ALBUMIN 4.1 g/dL (3.4-5.0); BILIRUBIN,DIRECT 0.1 mg/dL (0.0-0.2); BILIRUBIN,TOTAL 0.5 mg/dL (0.2-1.0)
[2021-10-20 03:43] LABS: BASOPHILS % (MANUAL) 2 % (0.0-2.0); EOSINOPHILS % (MANUAL) 22 % (0-4); LYMPHOCYTES % (MANUAL) 11 % (16-48); MONOCYTES % (MANUAL) 3 % (0-11.0); NEUTROPHILS % (MANUAL) 62 (42-76)
--- NOTE | 2021-10-20 03:55 | NUR ---
PT RETURNED TO ER BED [address]
[2021-10-20 05:48] VITALS: BP 128/71
--- NOTE | 2021-10-20 05:48 | NUR ---
Patient discharged to home in stable condition. Written and verbal after care instructions given. Patient verbalizes understanding of instruction. IV removed. Catheter intact and site benign. Pressure and 4x4 applied to site. No bleeding noted. PT ambulatory with a steady gait
== END 2021-10-20 05:49 | disposition home or self-care (01) ==
LOC: ER 01:09
DX: R10.9 Unspecified abdominal pain (principal); Z20.822 Contact with and (suspected) exposure to COVID-19; G35 Multiple sclerosis
CPT/HCPCS: 36415; 74176; 80048; 80076; 81001; 83690; 85007; 85025; 85730; 87426; 96361; 96374; 96375; 99284; C9803; J2270; J2405; J7030

== ENCOUNTER 2022-01-20 23:53 | Emergency (ER) | payer BC, OTHER ==
[~2022-01-20] VITALS: Ht 185.4 cm; Wt 72.6 kg
--- NOTE | 2022-01-21 00:14 | NUR ---
BIBSELF C/O CHEST PAIN LEEANN, LEFT ARM PAIN FOR THE PAST WEEK. PT A/OX4. TOLERATING R/A WITH NO RESP DISTRESS. CONNECTED PT TO POX AND MONITOR. SAFETY MEASURES IN PLACE.
--- NOTE | 2022-01-21 00:25 | NUR ---
PHOTOGRAPHIC PLATE MAKER AT PT'S BEDSIDE
--- NOTE | 2022-01-21 00:39 | NUR ---
RAC #18G S/L BLOOD COLLECTED AND SENT TO LAB
[2022-01-21 00:47] LABS: BASOPHILS % (AUTO) 2.1 % (0.0-2.0); EOSINOPHILS % (AUTO) 16.8 % (0.0-6.0); HEMATOCRIT 39 % (39-51); HEMOGLOBIN 13.1 g/dL (13.5-17.5); LYMPHOCYTES # (AUTO) 0.4 K/uL (0.8-4.8); LYMPHOCYTES % (AUTO) 22.7 % (20.0-44.0); MEAN CORPUSCULAR HGB CONC 33 g/dl (31.0-36.0); MEAN CORPUSCULAR VOLUME 92 fL (80-96); MONOCYTES # (AUTO) 0.2 K/uL (0.1-1.30); MONOCYTES % (AUTO) 12.4 % (2.0-12.0); NEUTROPHILS # (AUTO) 0.9 K/uL (1.8-8.9); PLATELET COUNT (AUTO) 222 K/uL (150-450); RED BLOOD CELL COUNT(AUTO) 4.29 MIL/uL (4.5-6.0)
[2022-01-21 00:57] LABS: CALCIUM, SERUM 9.1 mg/dL (8.5-10.1); CARBON DIOXIDE 33 mmol/L (21-32); CHLORIDE 106 mmol/L (98-107); CREATININE 1.1 mg/dL (0.6-1.3); GLUCOSE 92 mg/dL (74-106); POTASSIUM 4.2 mmol/L (3.5-5.1); SODIUM SERUM 142 mmol/L (136-145); UREA NITROGEN, BLOOD 12 mg/dL (7-18)
--- NOTE | 2022-01-21 02:30 | NUR ---
Patient discharged to home in stable condition. Written and verbal after care instructions given. Patient verbalizes understanding of instruction.IV removed. Catheter intact and site benign. Pressure and 4x4 applied to site. No bleeding noted. Pt ambulatory with a steady gait
[2022-01-21 02:36] VITALS: BP 117/75
== END 2022-01-21 02:37 | disposition home or self-care (01) ==
LOC: ER 23:55
DX: R07.89 Other chest pain (principal); Z79.899 Other long term (current) drug therapy
CPT/HCPCS: 36415; 71045-TC; 80048-TC; 84484-TC; 85025-TC

== ENCOUNTER 2022-04-16 19:13 | Emergency (ER) | payer BC, OTHER ==
[~2022-04-16] VITALS: Ht 185.4 cm; Wt 72.6 kg
[2022-04-16 20:48] LABS: BASOPHILS % (AUTO) 0.3 % (0.0-2.0); EOSINOPHILS % (AUTO) 5.2 % (0.0-6.0); HEMATOCRIT 41 % (39-51); HEMOGLOBIN 13.5 g/dL (13.5-17.5); LYMPHOCYTES # (AUTO) 0.4 K/uL (0.8-4.8); LYMPHOCYTES % (AUTO) 17.3 % (20.0-44.0); MEAN CORPUSCULAR HGB CONC 33 g/dl (31.0-36.0); MEAN CORPUSCULAR VOLUME 91 fL (80-96); MONOCYTES # (AUTO) 0.2 K/uL (0.1-1.30); MONOCYTES % (AUTO) 9.9 % (2.0-12.0); NEUTROPHILS # (AUTO) 1.7 K/uL (1.8-8.9); NEUTROPHILS % (AUTO) 67.3 % (43.0-81.0); PLATELET COUNT (AUTO) 288 K/uL (150-450); RED BLOOD CELL COUNT(AUTO) 4.49 MIL/uL (4.5-6.0); WHITE BLOOD COUNT (AUTO) 2.5 K/uL (4.3-11.0)
[2022-04-16 21:10] LABS: CALCIUM, SERUM 9.8 mg/dL (8.5-10.1); CARBON DIOXIDE 34 mmol/L (21-32); CHLORIDE 104 mmol/L (98-107); CREATININE 0.9 mg/dL (0.6-1.3); GLUCOSE 89 mg/dL (74-106); POTASSIUM 4.3 mmol/L (3.5-5.1); SODIUM SERUM 140 mmol/L (136-145); UREA NITROGEN, BLOOD 17 mg/dL (7-18)
[2022-04-16 21:12] LABS: THYROID STIMULATING HORMONE 2.043 uIU/mL (0.358-3.74)
[2022-04-16 21:32] LABS: MAGNESIUM 2.1 mg/dL (1.8-2.4)
[2022-04-16 21:45] LABS: EOSINOPHILS % (MANUAL) 2 % (0-4); LYMPHOCYTES % (MANUAL) 28 % (16-48); MONOCYTES % (MANUAL) 9 % (0-11.0); NEUTROPHILS % (MANUAL) 61 (42-76)
[2022-04-16] MEDS ORDERED: KETO10TA2 PO (21:53)
--- NOTE | 2022-04-16 22:09 | NUR ---
Patient discharged to home in stable condition. Written and verbal after care instructions given. Patient verbalizes understanding of instruction.
[2022-04-16 22:10] VITALS: BP 132/80
== END 2022-04-16 22:10 | disposition home or self-care (01) ==
LOC: ER 19:15
DX: U07.1 COVID-19 (principal); G35 Multiple sclerosis
CPT/HCPCS: 36415; 71045-TC; 80048-TC; 83735-TC; 83880; 84439-TC; 84443-TC; 84484-TC; 85025-TC

== ENCOUNTER 2022-05-09 07:11 | Emergency (ER) | payer BC, OTHER ==
[~2022-05-09] VITALS: Ht 185.4 cm; Wt 72.6 kg
[~2022-05-09 07:11] MED LIST changes: +KETO10TA2 PO
--- NOTE | 2022-05-09 08:53 | NUR ---
to er 8, no apparent change in condition
--- NOTE | 2022-05-09 09:03 | NUR ---
RAPID FLU AND COVID SWABS OBTAINED AND SENT TO LAB
--- NOTE | 2022-05-09 09:11 | NUR ---
GLUING MACHINE ADJUSTER AT BEDSIDE FOR XRAY
--- NOTE | 2022-05-09 09:17 | NUR ---
TECH AT BEDSIDE FOR EKG
[2022-05-09] MEDS ORDERED: ONDANSETRON HCL/PF 4 MG/2 ML VIAL IV ONE (09:30)
[2022-05-09 10:14] LABS: BASOPHILS % (AUTO) 0.8 % (0.0-2.0); EOSINOPHILS % (AUTO) 2.7 % (0.0-6.0); HEMATOCRIT 39 % (39-51); HEMOGLOBIN 12.5 g/dL (13.5-17.5); LYMPHOCYTES # (AUTO) 0.4 K/uL (0.8-4.8); LYMPHOCYTES % (AUTO) 14.2 % (20.0-44.0); MEAN CORPUSCULAR HGB CONC 32 g/dl (31.0-36.0); MEAN CORPUSCULAR VOLUME 91 fL (80-96); MONOCYTES # (AUTO) 0.3 K/uL (0.1-1.30); MONOCYTES % (AUTO) 11.3 % (2.0-12.0); PLATELET COUNT (AUTO) 252 K/uL (150-450); RED BLOOD CELL COUNT(AUTO) 4.27 MIL/uL (4.5-6.0); WHITE BLOOD COUNT (AUTO) 2.8 K/uL (4.3-11.0)
[2022-05-09 11:11] LABS: CALCIUM, SERUM 9.2 mg/dL (8.5-10.1); CARBON DIOXIDE 31 mmol/L (21-32); CHLORIDE 104 mmol/L (98-107); GLUCOSE 89 mg/dL (74-106); POTASSIUM 4.4 mmol/L (3.5-5.1); SODIUM SERUM 140 mmol/L (136-145); UREA NITROGEN, BLOOD 12 mg/dL (7-18)
[2022-05-09 11:58] VITALS: BP 124/70
--- NOTE | 2022-05-09 11:58 | NUR ---
Patient discharged to home in stable condition. Written and verbal after care instructions given. Patient verbalizes understanding of instruction.
== END 2022-05-09 11:59 | disposition home or self-care (01) ==
LOC: ER 07:19
DX: R05.9 Cough, unspecified (principal); R06.00 Dyspnea, unspecified; Z20.822 Contact with and (suspected) exposure to COVID-19; G35 Multiple sclerosis; Z86.16 Personal history of COVID-19
CPT/HCPCS: 99285; 71045; 87426; 93005; 87804; 85025; 80048; 36415; 84484; C9803

== ENCOUNTER 2022-06-24 20:46 | Emergency (ER) | payer BC, OTHER ==
[~2022-06-24] VITALS: Ht 185.4 cm; Wt 72.6 kg
--- NOTE | 2022-06-24 21:30 | NUR ---
BIBSELF C/O CP X3 DAYS +SOB +WEAKNESS. AMBULATORY WITH STEADY GAIT. PLACED IN BED, AAOX4, ATTACHED TO MONITOR SHOWS NORMAL SINUS RHYTHM AK- 63, BREATHING EVEN AND UNLABORED SATURATING AT 98%RA, IN PAIN 4/10 PS.
--- NOTE | 2022-06-24 22:15 | NUR ---
AT BEDSIDE FOR EVAL
--- NOTE | 2022-06-24 22:55 | NUR ---
X-RAY TECH AT BEDSIDE
--- NOTE | 2022-06-24 23:05 | NUR ---
GREY GOODS TESTER AT BEDSIDE
[2022-06-24 23:24] LABS: BASOPHILS % (AUTO) 0.9 % (0.0-2.0); EOSINOPHILS % (AUTO) 7.4 % (0.0-6.0); HEMATOCRIT 39 % (39-51); HEMOGLOBIN 12.9 g/dL (13.5-17.5); LYMPHOCYTES # (AUTO) 0.5 K/uL (0.8-4.8); LYMPHOCYTES % (AUTO) 17.9 % (20.0-44.0); MEAN CORPUSCULAR HGB CONC 33 g/dl (31.0-36.0); MEAN CORPUSCULAR VOLUME 88 fL (80-96); MONOCYTES # (AUTO) 0.3 K/uL (0.1-1.30); MONOCYTES % (AUTO) 10.6 % (2.0-12.0); NEUTROPHILS # (AUTO) 1.8 K/uL (1.8-8.9); NEUTROPHILS % (AUTO) 63.2 % (43.0-81.0); PLATELET COUNT (AUTO) 283 K/uL (150-450); RED BLOOD CELL COUNT(AUTO) 4.44 MIL/uL (4.5-6.0); WHITE BLOOD COUNT (AUTO) 2.8 K/uL (4.3-11.0)
[2022-06-24 23:38] LABS: CALCIUM, SERUM 9.3 mg/dL (8.5-10.1); CREATININE 0.9 mg/dL (0.6-1.3); POTASSIUM 3.7 mmol/L (3.5-5.1)
[2022-06-25 00:28] VITALS: BP 135/90
--- NOTE | 2022-06-25 00:28 | NUR ---
Patient discharged to home in stable condition. Written and verbal after care instructions given. Patient verbalizes understanding of instruction.
== END 2022-06-25 00:56 | disposition home or self-care (01) ==
LOC: ER 20:48
DX: R07.9 Chest pain, unspecified (principal); G35 Multiple sclerosis; Z86.16 Personal history of COVID-19
CPT/HCPCS: 36415; 71045-TC; 80048-TC; 84484-TC; 85025-TC

== ENCOUNTER 2022-08-19 20:17 | Emergency (ER) | payer BC, OTHER ==
[~2022-08-19] VITALS: Ht 185.4 cm; Wt 81.6 kg
[2022-08-20] MEDS ORDERED: IBUPROFEN 400 MG TABLET ONE (00:54)
[2022-08-20] MEDS ORDERED: IBUPROFEN 400 MG TABLET PO ONE (01:00)
[2022-08-20 01:09] LABS: BASOPHILS % (AUTO) 1.4 % (0.0-2.0); EOSINOPHILS % (AUTO) 5.5 % (0.0-6.0); HEMATOCRIT 42 % (39-51); HEMOGLOBIN 13.5 g/dL (13.5-17.5); LYMPHOCYTES # (AUTO) 0.7 K/uL (0.8-4.8); LYMPHOCYTES % (AUTO) 26.5 % (20.0-44.0); MEAN CORPUSCULAR HGB CONC 33 g/dl (31.0-36.0); MEAN CORPUSCULAR VOLUME 88 fL (80-96); MONOCYTES # (AUTO) 0.4 K/uL (0.1-1.30); MONOCYTES % (AUTO) 14.5 % (2.0-12.0); NEUTROPHILS # (AUTO) 1.3 K/uL (1.8-8.9); NEUTROPHILS % (AUTO) 52.1 % (43.0-81.0); PLATELET COUNT (AUTO) 277 K/uL (150-450); RED BLOOD CELL COUNT(AUTO) 4.71 MIL/uL (4.5-6.0); WHITE BLOOD COUNT (AUTO) 2.5 K/uL (4.3-11.0)
--- NOTE | 2022-08-20 01:13 | NUR ---
dr medrano on the phone with dr taylor for cardiology consult
[2022-08-20 02:51] LABS: ALBUMIN 4.4 g/dL (3.4-5.0); BILIRUBIN,TOTAL 0.5 mg/dL (0.2-1.0); CALCIUM, SERUM 9.5 mg/dL (8.5-10.1)
--- NOTE | 2022-08-20 04:14 | NUR ---
pt ok to discharge per dr medrano. Patient discharged to home in stable condition. Written and verbal after care instructions given. Patient verbalizes understanding of instruction.Patient is awake and alert to self, day, and place. pt ambulatory with a steady gait.
[2022-08-20 04:15] VITALS: BP 121/79
== END 2022-08-20 04:16 | disposition home or self-care (01) ==
LOC: ER 20:54
DX: R07.89 Other chest pain (principal); G35 Multiple sclerosis; Z86.16 Personal history of COVID-19; Z79.899 Other long term (current) drug therapy
CPT/HCPCS: 36415; 71045-TC; 80053-TC; 84484-TC; 85025-TC

== ENCOUNTER 2022-09-10 13:56 | Emergency (ER) | payer BC, OTHER ==
[~2022-09-10] VITALS: Ht 185.4 cm; Wt 81.6 kg
[2022-09-10 14:40] VITALS: BP 120/74
--- NOTE | 2022-09-10 14:40 | NUR ---
Pt discharged by Dr without RN present
== END 2022-09-10 14:41 | disposition home or self-care (01) ==
LOC: ER 14:02
DX: K64.9 Unspecified hemorrhoids (principal); G35 Multiple sclerosis; Z86.16 Personal history of COVID-19; Z79.899 Other long term (current) drug therapy

== ENCOUNTER 2022-10-23 21:25 | Emergency (ER) | payer BC, OTHER ==
[~2022-10-23] VITALS: Ht 185.4 cm; Wt 81.6 kg
[2022-10-23] MEDS ORDERED: IBUPROFEN 400 MG TABLET ONE (22:29)
[2022-10-23] MEDS ORDERED: IBUPROFEN 400 MG TABLET PO ONE (22:30)
[2022-10-23 23:18] LABS: BASOPHILS % (AUTO) 1.3 % (0.0-2.0); EOSINOPHILS % (AUTO) 8.9 % (0.0-6.0); HEMATOCRIT 39 % (39-51); HEMOGLOBIN 12.8 g/dL (13.5-17.5); LYMPHOCYTES # (AUTO) 0.8 K/uL (0.8-4.8); LYMPHOCYTES % (AUTO) 24.7 % (20.0-44.0); MEAN CORPUSCULAR HGB CONC 33 g/dl (31.0-36.0); MEAN CORPUSCULAR VOLUME 87 fL (80-96); MONOCYTES # (AUTO) 0.3 K/uL (0.1-1.30); MONOCYTES % (AUTO) 10.2 % (2.0-12.0); NEUTROPHILS # (AUTO) 1.7 K/uL (1.8-8.9); NEUTROPHILS % (AUTO) 54.9 % (43.0-81.0); PLATELET COUNT (AUTO) 264 K/uL (150-450); RED BLOOD CELL COUNT(AUTO) 4.49 MIL/uL (4.5-6.0); WHITE BLOOD COUNT (AUTO) 3.1 K/uL (4.3-11.0)
[2022-10-23 23:22] LABS: D-DIMER 0.19 mg/L(FEU (0.17-0.50)
[2022-10-23 23:24] LABS: ALANINE AMINOTRANSFERASE 26 U/L (12-78); ALKALINE PHOSPHATASE 73 U/L (46-116); ASPARTATE AMINOTRANSFERASE 16 U/L (15-37); BILIRUBIN,DIRECT 0.1 mg/dL (0.0-0.2); BILIRUBIN,TOTAL 0.3 mg/dL (0.2-1.0); CALCIUM, SERUM 9.4 mg/dL (8.5-10.1); CARBON DIOXIDE 29 mmol/L (21-32); CHLORIDE 105 mmol/L (98-107); CREATININE 0.9 mg/dL (0.6-1.3); GLUCOSE 117 mg/dL (74-106); SODIUM SERUM 143 mmol/L (136-145); TOTAL PROTEIN, SERUM 7.6 g/dL (6.4-8.2); UREA NITROGEN, BLOOD 11 mg/dL (7-18)
--- NOTE | 2022-10-24 00:40 | NUR ---
JET WORKER AT PT'S BEDSIDE
--- NOTE | 2022-10-24 02:34 | NUR ---
Patient discharged to home in stable condition. Written and verbal after care instructions given. Patient verbalizes understanding of instruction.
[2022-10-24 02:40] VITALS: BP 121/80
== END 2022-10-24 02:41 | disposition home or self-care (01) ==
LOC: ER 21:31
DX: R07.89 Other chest pain (principal); G35 Multiple sclerosis; Z86.16 Personal history of COVID-19; Z79.899 Other long term (current) drug therapy
CPT/HCPCS: 36415; 71045-TC; 80048-TC; 80076-TC; 84484-TC; 85025-TC; 85378-TC; 85730-TC

== ENCOUNTER 2023-06-15 22:22 | Emergency (ER) | payer BC, OTHER ==
[~2023-06-15] VITALS: Ht 185.4 cm; Wt 86.2 kg
[2023-06-15] MEDS: IV NS 0.9% 1,000 ML IV ONE (23:04)
[2023-06-15 23:22] VITALS: BP 134/77; TEMP 97.7; O2SAT 99
[2023-06-15 23:24] LABS: BASOPHILS % (AUTO) 0.6 % (0.0-2.0); EOSINOPHILS # (AUTO) 0.1 K/uL (0.0-0.7); EOSINOPHILS % (AUTO) 4.4 % (0.0-6.0); HEMATOCRIT 42 % (39-51); HEMOGLOBIN 14.2 g/dL (13.5-17.5); LYMPHOCYTES # (AUTO) 0.7 K/uL (0.8-4.8); MEAN CORPUSCULAR HEMOGLOBIN 31 PG (26.0-33.0); MEAN CORPUSCULAR HGB CONC 33 g/dl (31.0-36.0); MEAN CORPUSCULAR VOLUME 92 fL (80-96); MONOCYTES # (AUTO) 0.3 K/uL (0.1-1.30); MONOCYTES % (AUTO) 10.9 % (2.0-12.0); NEUTROPHILS # (AUTO) 1.3 K/uL (1.8-8.9); NEUTROPHILS % (AUTO) 55.1 % (43.0-81.0); PLATELET COUNT (AUTO) 244 K/uL (150-450); RED BLOOD CELL COUNT(AUTO) 4.59 MIL/uL (4.5-6.0); RED CELL DISTRIBUTION WIDTH 13.8 % (11.5-15.0); WHITE BLOOD COUNT (AUTO) 2.4 K/uL (4.3-11.0)
[2023-06-15 23:34] LABS: CALCIUM, SERUM 9.3 mg/dL (8.5-10.1); CREATININE 0.8 mg/dL (0.6-1.3); POTASSIUM 3.9 mmol/L (3.5-5.1)
[2023-06-15 23:39] LABS: ALBUMIN 4.1 g/dL (3.4-5.0); BILIRUBIN,TOTAL 0.4 mg/dL (0.2-1.0); TOTAL PROTEIN, SERUM 7.8 g/dL (6.4-8.2)
[2023-06-15 23:46] LABS: LACTIC ACID 1.2 mmol/L (0.4-2.0)
[2023-06-16 00:21] LABS: APPEARANCE,URINE CLEAR (CLEAR); BILIRUBIN,URINE NEGATIVE (NEGATIVE); BLOOD, URINE NEGATIVE Ery/uL (NEGATIVE); COLOR,URINE YELLOW (YELLOW); KETONES,URINE NEGATIVE (NEGATIVE); LEUKOCYTE ESTERASE ,URINE NEGATIVE (NEGATIVE); NITRITE, URINE NEGATIVE (NEGATIVE); PROTEIN,URINE NEGATIVE (NEGATIVE); UGLUCOSE NEGATIVE (NEGATIVE); UROBILINOGEN,URINE 0.2 EU/dL (0.2)
== END 2023-06-16 02:47 | disposition home or self-care (01) ==
LOC: ER 22:25
DX: R10.9 Unspecified abdominal pain (principal); G35 Multiple sclerosis; Z79.899 Other long term (current) drug therapy
CPT/HCPCS: 99284; 74176; 96360; 85025; 87040; 83605; 83690; 81003; 36415; 80053; J7030

== ENCOUNTER 2024-01-27 23:30 | Emergency (ER) | payer BC ==
[~2024-01-27] VITALS: Ht 185.4 cm; Wt 88.9 kg
[2024-01-27] MEDS ORDERED: KETOROLAC TROMETHAMINE INJ 30 MG/ML VIAL ONE (23:57)
[2024-01-28] MEDS: KETOROLAC TROMETHAMINE 15 MG/ML VIAL IV ONE (00:05)
[2024-01-28] MEDS: IV NS 0.9% 1,000 ML BAG IV ONE (00:05)
[2024-01-28 00:15] LABS: APPEARANCE,URINE CLEAR (CLEAR); BILIRUBIN,URINE NEGATIVE (NEGATIVE); BLOOD, URINE NEGATIVE Ery/uL (NEGATIVE); COLOR,URINE YELLOW (YELLOW); KETONES,URINE NEGATIVE (NEGATIVE); LEUKOCYTE ESTERASE ,URINE NEGATIVE (NEGATIVE); NITRITE, URINE NEGATIVE (NEGATIVE); PROTEIN,URINE NEGATIVE (NEGATIVE); UGLUCOSE NEGATIVE (NEGATIVE); UROBILINOGEN,URINE 0.2 EU/dL (0.2)
[2024-01-28 00:21] LABS: BASOPHILS % (AUTO) 0.5 % (0.0-2.0); EOSINOPHILS # (AUTO) 0.3 K/uL (0.0-0.7); EOSINOPHILS % (AUTO) 8.7 % (0.0-6.0); HEMATOCRIT 42 % (39-51); HEMOGLOBIN 13.9 g/dL (13.5-17.5); LYMPHOCYTES # (AUTO) 0.9 K/uL (0.8-4.8); LYMPHOCYTES % (AUTO) 23.7 % (20.0-44.0); MEAN CORPUSCULAR HEMOGLOBIN 30 PG (26.0-33.0); MEAN CORPUSCULAR HGB CONC 33 g/dl (31.0-36.0); MEAN CORPUSCULAR VOLUME 91 fL (80-96); MONOCYTES # (AUTO) 0.3 K/uL (0.1-1.30); MONOCYTES % (AUTO) 8.2 % (2.0-12.0); NEUTROPHILS # (AUTO) 2.2 K/uL (1.8-8.9); NEUTROPHILS % (AUTO) 58.9 % (43.0-81.0); PLATELET COUNT (AUTO) 212 K/uL (150-450); RED BLOOD CELL COUNT(AUTO) 4.56 MIL/uL (4.5-6.0); RED CELL DISTRIBUTION WIDTH 15.1 % (11.5-15.0); WHITE BLOOD COUNT (AUTO) 3.7 K/uL (4.3-11.0)
[2024-01-28 00:27] LABS: CALCIUM, SERUM 8.9 mg/dL (8.5-10.1); POTASSIUM 4.1 mmol/L (3.5-5.1)
[2024-01-28 00:31] LABS: LACTIC ACID 0.6 mmol/L (0.4-2.0)
[2024-01-28 00:38] LABS: ALBUMIN 3.9 g/dL (3.4-5.0); BILIRUBIN,DIRECT 0.1 mg/dL (0.0-0.2); BILIRUBIN,TOTAL 0.5 mg/dL (0.2-1.0); TOTAL PROTEIN, SERUM 7.1 g/dL (6.4-8.2)
[2024-01-28 00:39] LABS: INR 1.06 (0.91-1.10); PARTIAL THROMBOPLASTIN TIME 26.5 SEC (24.3-34.3); PROTHROMBIN TIME 11.2 SECS (9.2-11.1)
[2024-01-28] MEDS ORDERED: IOHEXOL-300 100 ML VIAL IV ONE (01:05)
[2024-01-28] MEDS ORDERED: CT SWABBABLE VALVE TRANS SET 1 EA INFUS.SET MC ONE (01:05)
[2024-01-28] MEDS ORDERED: IV NS 0.9% 250 ML IV ONE (01:05)
[2024-01-28] MEDS ORDERED: LOPE2CAP40 PO (02:01)
[2024-01-28] MEDS ORDERED: DICY10CA37 PO (02:01)
[2024-01-28 02:38] VITALS: BP 107/65; TEMP 98; O2SAT 99
== END 2024-01-28 02:43 | disposition home or self-care (01) ==
LOC: ER 23:30
DX: R10.2 Pelvic and perineal pain (principal); R19.7 Diarrhea, unspecified; Z86.69 Personal history of other diseases of the nervous system and sense organs; Z87.19 Personal history of other diseases of the digestive system; Z86.16 Personal history of COVID-19
CPT/HCPCS: 99285; 74177; 36415; 96374; 96361; 85025; 80048; 83605; 83690; 80076; 81003; 85730; J7050; Q9967; J1885; J7030

== ENCOUNTER 2024-02-23 17:23 | Emergency (ER) | payer BC ==
[~2024-02-23] VITALS: Ht 185.4 cm; Wt 84.4 kg
[~2024-02-23 17:23] MED LIST changes: +DICY10CA37 PO; +LOPE2CAP40 PO
[2024-02-23 18:07] VITALS: BP 124/78; TEMP 98.3; O2SAT 98
== END 2024-02-23 18:07 | disposition home or self-care (01) ==
LOC: ER 17:26
DX: R42 Dizziness and giddiness (principal); G35 Multiple sclerosis; Z86.16 Personal history of COVID-19; Z79.899 Other long term (current) drug therapy; T50.995A Adverse effect of other drugs, medicaments and biological substances, initial encounter; Y92.89 Other specified places as the place of occurrence of the external cause

== ENCOUNTER 2024-05-13 00:58 | Emergency (ER) | payer BC ==
[~2024-05-13] VITALS: Ht 185.4 cm; Wt 83.9 kg
[2024-05-13 06:54] LABS: CALCIUM, SERUM 9.9 mg/dL (8.5-10.1); CREATININE 0.9 mg/dL (0.6-1.3); POTASSIUM 4.4 mmol/L (3.5-5.1)
[2024-05-13 07:11] VITALS: BP 127/79; TEMP 98.4; O2SAT 99
== END 2024-05-13 07:11 | disposition home or self-care (01) ==
LOC: ER 02:55
DX: R42 Dizziness and giddiness (principal); G35 Multiple sclerosis; Z86.16 Personal history of COVID-19
CPT/HCPCS: 36415; 80048-TC